=== PATIENT | male | born 2000 | race Caucasian/White ===

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

== ENCOUNTER → 2021-09-02 | Outpatient (CLI) | payer OTHER ==
[~2021-09-02] MED LIST: ALLEGRA ALLERGY60 MG PO; KEPPRA 500 MG500 MG PO; MYDAYIS PO
== END ==
LOC: US 08:30 → NM 09:00
DX: R10.11 Right upper quadrant pain (principal)
CPT/HCPCS: 76705; 78227; A9537